=== PATIENT | female | born 1960 | race Caucasian/White ===

== ENCOUNTER 2022-02-25 04:33 | Day surgery (SDC) | payer BC ==
[2022-02-25] MEDS ORDERED: KETAMINE HCL 500 MG/10 ML VIAL ONE (07:19)
[2022-02-25] MEDS ORDERED: SUCCINYLCHOLINE CHLORIDE 200 MG/10 ML SYRINGE ONE (07:20)
[2022-02-25 07:22] VITALS: BMI 29.0
[2022-02-25 09:18] VITALS: BP 133/76; PULSE 66; RESP 17; TEMP 98
== END 2022-02-25 09:36 | disposition home or self-care (01) ==
LOC: JASU-ENDO 04:33
PROVIDERS: ATTEND Internal Medicine Gastroenterology
PROC: 0DJD8ZZ Inspection of Lower Intestinal Tract, Via Natural or Artificial Opening Endoscopic (ICD-10-PCS; principal; 2022-02-25 08:00)
DX: Z12.11 Encounter for screening for malignant neoplasm of colon (principal); K57.30 Diverticulosis of large intestine without perforation or abscess without bleeding; K64.8 Other hemorrhoids; Z86.010 Personal history of colon polyps; Z80.0 Family history of malignant neoplasm of digestive organs

== ENCOUNTER 2023-02-11 05:03 | Day surgery (SDC) | payer BC ==
[2023-02-07 16:10] VITALS: BMI 27.4
[2023-02-11] MEDS ORDERED: FENTANYL CITRATE/PF 50 MCG/ML VIAL ONE (07:03)
[2023-02-11] MEDS ORDERED: PROPOFOL 20 ML ONE (07:03)
[2023-02-11] MEDS ORDERED: MIDAZOLAM HCL 2 MG/2 ML SINGLE DOSE VIAL ONE (07:04)
[2023-02-11] MEDS ORDERED: IBUPROFEN 800 MG/8 ML IJ IVPB PRN (07:30)
[2023-02-11] MEDS ORDERED: ONDANSETRON 4 MG/2 ML VIAL IVPUSH PRN ×2 (07:30→08:29)
[2023-02-11] MEDS ORDERED: IBUPROFEN 600 MG TABLET (FP) PO PRN (07:30)
[2023-02-11] MEDS ORDERED: oxyCODONE HCL 5 MG TABLET PO PRN (07:30)
[2023-02-11] MEDS ORDERED: ELECTROLYTE-148 SOLN 1,000 ML IV SCH (07:30)
[2023-02-11] MEDS ORDERED: DEXAMETHASONE SOD PHOSPHATE 4 MG/1 ML VIAL ONE (08:07)
[2023-02-11] MEDS ORDERED: KETOROLAC TROMETHAMINE 30 MG/1 ML VIAL ONE (08:07)
[2023-02-11] MEDS ORDERED: ceFAZolin SODIUM 1 GM VIAL ONE (08:07)
[2023-02-11] MEDS ORDERED: LACTATED RINGERS SOLUTION 1,000 ML IV SCH (08:30)
[2023-02-11 10:34] VITALS: RESP 20
[2023-02-11 12:15] VITALS: BP 139/69; PULSE 72; TEMP 97.8
== END 2023-02-11 11:40 | disposition home or self-care (01) ==
LOC: JASU-SURG 05:03
PROVIDERS: ATTEND Obstetrics & Gynecology
PROC: 0UBC8ZZ Excision of Cervix, Via Natural or Artificial Opening Endoscopic (ICD-10-PCS; principal; 2023-02-11 07:30)
DX: N84.1 Polyp of cervix uteri (principal); N85.8 Other specified noninflammatory disorders of uterus
CPT/HCPCS: 86850; 86900; 86901; 88305-TC; 94760